=== PATIENT | male | born 1970 | race Caucasian/White ===

== ENCOUNTER 2017-02-22 14:34 | Emergency (ER) | payer SELFPAY ==
[2017-02-22 18:12] VITALS: BP 126/83
== END 2017-02-22 18:12 | disposition home or self-care (01) ==
LOC: ED 14:34
DX: S61.214A Laceration without foreign body of right ring finger without damage to nail, initial encounter (principal); W45.8XXA Other foreign body or object entering through skin, initial encounter; Z88.0 Allergy status to penicillin; Y99.0 Civilian activity done for income or pay; Y93.89 Activity, other specified; Y92.89 Other specified places as the place of occurrence of the external cause
CPT/HCPCS: 90715; J3490

== ENCOUNTER 2020-08-25 07:48 | Emergency (ER) | payer OTHER ==
[~2020-08-25] VITALS: Ht 167.6 cm; Wt 86.2 kg
[2020-08-25 07:50] VITALS: Ht 167.6 cm; Wt 86.2 kg
[2020-08-25 10:25] VITALS: BP 115/86
== END 2020-08-25 10:20 | disposition home or self-care (01) ==
LOC: ED 07:48
DX: R05 Cough (principal); R06.7 Sneezing; R06.02 Shortness of breath; R11.0 Nausea; M79.10 Myalgia, unspecified site; R43.8 Other disturbances of smell and taste; I10 Essential (primary) hypertension; Z20.828 Contact with and (suspected) exposure to other viral communicable diseases; Z88.0 Allergy status to penicillin; Z98.890 Other specified postprocedural states
CPT/HCPCS: U0003-CS

== ENCOUNTER 2020-12-28 06:28 | Emergency (ER) | payer OTHER, SELFPAY ==
[~2020-12-28] VITALS: Ht 167.6 cm; Wt 95.3 kg
[2020-12-28 06:31] VITALS: Ht 167.6 cm; Wt 95.3 kg
[2020-12-28 07:02] VITALS: BP 170/104
== END 2020-12-28 07:02 | disposition home or self-care (01) ==
LOC: ED 06:28
DX: R19.7 Diarrhea, unspecified (principal); R11.0 Nausea; R09.89 Other specified symptoms and signs involving the circulatory and respiratory systems; I10 Essential (primary) hypertension; R53.1 Weakness; Z20.828 Contact with and (suspected) exposure to other viral communicable diseases; Z88.0 Allergy status to penicillin
CPT/HCPCS: U0003